=== PATIENT | male | born 1955 | race African-American/Black ===

== ENCOUNTER 2022-01-27 15:09 | Inpatient (IN) | payer MEDICARE, OTHER ==
[~2022-01-27] VITALS: Ht 175.3 cm; Wt 63.5 kg
[2022-01-27 16:08] LABS: HEMATOCRIT. 27.9 % (42.0-52.0); HEMOGLOBIN. 8.9 g/dL (14.0-18.0); MEAN CORPUSCULAR HEMOGLOBIN 24.1 pg (28.0-32.0); MEAN CORPUSCULAR VOLUME 76.1 fL (80.0-94.0); MEAN PLATELET VOLUME 6.8 fl (7.4-10.4); PLATELET 171 x1000/uL (130-400); RED BLOOD CELL COUNT 3.67 mill/uL (4.7-6.1); RED CELL DISTRIBUTION WIDTH 22.5 % (11.6-14.6)
[2022-01-27 16:12] LABS: CHLORIDE 106 mEq/L (98-107)
[2022-01-27] MEDS ORDERED: SODIUM CHLORIDE 0.9% 1,000 ML IV ONE (16:45)
[2022-01-27] MEDS ORDERED: ACETAMINOPHEN 325MG TABLET PO ONE (18:00)
[2022-01-27 18:33] LABS: PLATELET ESTIMATE NORMAL
[2022-01-27] MEDS ORDERED: IPRATROPIUM/ALBUTEROL 0.5-3(2.5)MG/3ML NEB HHN PRN (18:45)
[2022-01-27] MEDS ORDERED: DIPHENHYDRAMINE 50MG/ML VIAL IV PRN (18:45)
[2022-01-27] MEDS ORDERED: CLONIDINE 0.1MG TABLET PO PRN (18:45)
[2022-01-27] MEDS ORDERED: ONDANSETRON HCL 4MG/2ML INJ IV PRN (18:45)
[2022-01-27] MEDS ORDERED: ACETAMINOPHEN 325MG TABLET PO PRN (18:45)
[2022-01-27 21:15] VITALS: BP 103/66
[2022-01-27] MEDS: SODIUM CHLORIDE 0.9% 1,000 ML IV SCH (21:15)
[2022-01-28 07:05] LABS: HEMATOCRIT. 25.7 % (42.0-52.0); HEMOGLOBIN. 8.7 g/dL (14.0-18.0); LYMPHOCYTES % 7.3 % (20.0-50.0); MEAN CORPUSCULAR HEMOGLOBIN 25.3 pg (28.0-32.0); MEAN CORPUSCULAR VOLUME 74.9 fL (80.0-94.0); MEAN PLATELET VOLUME 7.1 fl (7.4-10.4); MONOCYTES % 7.5 % (2.0-8.0); NEUTROPHILS % 85.2 % (40.0-76.0); PLATELET 172 x1000/uL (130-400); RED BLOOD CELL COUNT 3.44 mill/uL (4.7-6.1); RED CELL DISTRIBUTION WIDTH 22.5 % (11.6-14.6)
[2022-01-28 07:20] LABS: CHLORIDE 107 mEq/L (98-107)
[2022-01-28 08:00] VITALS: BP 106/69
[2022-01-28] MEDS: SODIUM CHLORIDE 0.9% 1,000 ML IV SCH (11:25)
[2022-01-28 12:00] VITALS: BP 104/71
[2022-01-28] MEDS ORDERED: INFLUENZA VACCINE 05/PF 0.5 ML SYRINGE IM ONE (12:00)
[2022-01-28 12:26] LABS: PLATELET ESTIMATE NORMAL
[2022-01-28] MEDS ORDERED: MORPHINE SULFATE 2 MG/ML CPJ (NOT FOR IM USE) IV PRN (14:45)
[2022-01-28] MEDS ORDERED: NALOXONE HCL 0.4MG/ML VIAL IV PRN (15:00)
[2022-01-28 16:00] VITALS: BP 106/72
[2022-01-28 19:33] LABS: CLARITY URINE CLEAR (CLEAR); COLOR URINE YELLOW (YELLOW); KETONES URINE NEGATIVE (NEGATIVE); LEUKOCYTE ESTERASE URINE NEGATIVE (NEGATIVE); NITRITE URINE NEGATIVE (NEGATIVE); OCCULT BLOOD URINE NEGATIVE (NEGATIVE); PROTEIN URINE NEGATIVE (NEGATIVE); SPECIFIC GRAVITY URINE 1.015 (1.005-1.030); UROBILINOGEN URINE 0.2 E.U./dL (0.2-1.0)
[2022-01-28 20:00] VITALS: BP 107/59
[2022-01-28 20:06] LABS: *AMPHETAMINES SCREEN URINE NEGATIVE (NEGATIVE); *BARBITURATES SCREEN URINE NEGATIVE (NEGATIVE); *BENZODIAZEPINES SCREEN URINE NEGATIVE (NEGATIVE); *COCAINE SCREEN URINE NEGATIVE (NEGATIVE); CANNABINOID URINE SCREEN NEGATIVE (NEGATIVE); METHADONE URINE SCREEN NEGATIVE (NEGATIVE); OPIATES URINE SCREEN NEGATIVE (NEGATIVE); PHENCYCLIDINE URINE SCREEN NEGATIVE (NEGATIVE)
[2022-01-29] VITALS: BP 131/74
[2022-01-29 04:00] VITALS: BP 101/55
[2022-01-29] MEDS: SODIUM CHLORIDE 0.9% 1,000 ML IV SCH ×2 (04:05→21:10)
[2022-01-29 08:00] VITALS: BP 97/56
[2022-01-29 12:00] VITALS: BP 104/63
[2022-01-29 16:00] VITALS: BP 128/85
[2022-01-29 20:00] VITALS: BP 97/63
[2022-01-30] VITALS: BP 97/59
[2022-01-30 04:00] VITALS: BP 96/61
[2022-01-30 08:00] VITALS: BP 98/63
[2022-01-30 12:00] VITALS: BP 123/81
[2022-01-30] MEDS: DEXT 5%/0.45% NACL 1000ML 1,000 ML IV SCH (13:04)
[2022-01-30] MEDS ORDERED: DEXTROSE 50% WATER 50ML SYRINGE IV NR (13:15)
[2022-01-30] MEDS: MEGESTROL ACETATE 400 MG/10 ML UDC PO SCH (14:15)
[2022-01-30] MEDS: SODIUM CHLORIDE 0.45% 1,000 ML IV SCH (14:15)
[2022-01-30] MEDS: PANTOPRAZOLE SODIUM 40 MG/VIAL IV SCH (18:19)
[2022-01-30 19:37] LABS: CREATINE KINASE 95 IU/L (39-308)
[2022-01-30 19:55] LABS: TOTAL IRON BINDING CAPACITY 169 ug/dL (250-450)
[2022-01-30 20:00] VITALS: BP 124/75
[2022-01-30 20:17] LABS: FERRITIN 945 ng/mL (22-322)
[2022-01-30 20:31] LABS: VITAMIN B12 SERUM > 2000.0 pg/mL (211-911)
[2022-01-31] VITALS: BP 130/73
[2022-01-31 04:00] VITALS: BP 116/77
[2022-01-31] MEDS: PANTOPRAZOLE SODIUM 40 MG/VIAL IV SCH ×3 (08:31→08:42)
[2022-01-31] MEDS: MEGESTROL ACETATE 400 MG/10 ML UDC PO SCH (08:31)
[2022-01-31] MEDS: DEXT 5%/0.45% NACL 1000ML 1,000 ML IV SCH ×4 (08:31→18:18)
[2022-01-31] MEDS: SODIUM CHLORIDE 0.45% 1,000 ML IV SCH ×2 (10:15→20:00)
[2022-01-31] MEDS: PANTOPRAZOLE 40MG DR TABLET PO SCH (11:45)
[2022-01-31] MEDS ORDERED: LIDOCAINE HCL 1% 10 MG/ML 10ML VIAL ONE (12:39)
[2022-01-31 15:44] LABS: BASOPHILS % 0.1 % (0.0-2.0); HEMATOCRIT. 30.3 % (42.0-52.0); HEMOGLOBIN. 9.7 g/dL (14.0-18.0); LYMPHOCYTES % 7.7 % (20.0-50.0); MEAN CORPUSCULAR VOLUME 74.6 fL (80.0-94.0); MEAN PLATELET VOLUME 7.5 fl (7.4-10.4); MONOCYTES % 8.7 % (2.0-8.0); NEUTROPHILS % 83.5 % (40.0-76.0); PLATELET 119 x1000/uL (130-400); RED BLOOD CELL COUNT 4.05 mill/uL (4.7-6.1); RED CELL DISTRIBUTION WIDTH 23.2 % (11.6-14.6)
[2022-01-31] MEDS ORDERED: LOSARTAN 100 MG (19:00)
[2022-01-31] MEDS ORDERED: XARELTO (19:00)
[2022-01-31] MEDS ORDERED: ATORVASTATIN (19:01)
[2022-01-31] MEDS ORDERED: ASPIRIN 81MG (19:04)
[2022-01-31] MEDS ORDERED: DORZOLAMIDE TIMOLOL (19:04)
[2022-01-31] MEDS ORDERED: LEVOTHYROXINE (19:04)
[2022-01-31] MEDS ORDERED: PANT40TA51 MT (19:04)
[2022-01-31] MEDS ORDERED: D3 (19:04)
[2022-01-31] MEDS ORDERED: LATA5DRO EACHEYE (19:05)
[2022-01-31 20:00] VITALS: BP 106/62
[2022-02-01] VITALS: BP 106/63
[2022-02-01 04:00] VITALS: BP 115/65
[2022-02-01 08:00] VITALS: BP 128/68
[2022-02-01] MEDS ORDERED: FOLIC ACID 1MG TABLET PO SCH (09:00)
[2022-02-01] MEDS: PANTOPRAZOLE 40MG DR TABLET PO SCH (09:00)
[2022-02-01 10:27] LABS: HEMATOCRIT. 28.2 % (42.0-52.0); HEMOGLOBIN. 9.1 g/dL (14.0-18.0); MEAN CORPUSCULAR HEMOGLOBIN 24.1 pg (28.0-32.0); MEAN CORPUSCULAR VOLUME 74.8 fL (80.0-94.0); MEAN PLATELET VOLUME 8.4 fl (7.4-10.4); PLATELET 107 x1000/uL (130-400); RED BLOOD CELL COUNT 3.77 mill/uL (4.7-6.1); RED CELL DISTRIBUTION WIDTH 23.1 % (11.6-14.6)
[2022-02-01 11:15] LABS: PLATELET ESTIMATE SLIGHTLY DECREASED
[2022-02-01 12:00] VITALS: BP 103/62
[2022-02-01] MEDS: SODIUM CHLORIDE 0.45% 1,000 ML IV SCH ×2 (15:21→15:41)
[2022-02-01] MEDS: DEXT 5%/0.45% NACL 1000ML 1,000 ML IV SCH (15:40)
[2022-02-01 16:00] VITALS: BP 125/65
[2022-02-01 20:00] VITALS: BP 109/77
[2022-02-02 04:34] VITALS: BP 107/61
[2022-02-02] MEDS ORDERED: DEXTROSE 50% WATER 50ML SYRINGE IV NR (07:30)
[2022-02-02] MEDS ORDERED: MAGNESIUM SULFATE 4G IN WATER 100ML PREMIX IV ONE (08:45)
[2022-02-02] MEDS ORDERED: AMIODARONE HCL 50MG/ML 3ML VIAL IV ONE (08:45)
[2022-02-02] MEDS ORDERED: CALCIUM CHLORIDE 1GM/10ML SYR IV ONE (08:45)
[2022-02-02] MEDS ORDERED: SODIUM BICARBONATE 8.4% 1 MEQ/ML 50ML SYR IV ONE (08:45)
[2022-02-02] MEDS ORDERED: EPINEPHRINE 0.1MG/ML (1:10,000) 10ML SYR ONE (08:45)
[2022-02-02] MEDS ORDERED: DEXTROSE 50% WATER 50ML SYRINGE IV ONE (08:45)
[2022-02-03 09:10] LABS: ANTI-NUCLEAR ANTIBODIES DIRECT Negative (Negative)
== END 2022-02-02 07:24 | DRG 110 ==
LOC: ER 15:09 → EDBEDREQTM 18:01 → EDBEDREQ 18:01 → EDBEDREQSVC 18:01 → ENRESERV 19:19 → 6EST 21:15
PROVIDERS: ADMIT Internal Medicine; ATTEND Internal Medicine
PROC: 02HV33Z Insertion of Infusion Device into Superior Vena Cava, Percutaneous Approach (ICD-10-PCS; 2022-01-31)
PROC: B5181ZA Fluoroscopy of Superior Vena Cava using Low Osmolar Contrast, Guidance (ICD-10-PCS; 2022-01-31)
PROC: B548ZZA Ultrasonography of Superior Vena Cava, Guidance (ICD-10-PCS; 2022-01-31)
PROC: 5A12012 Performance of Cardiac Output, Single, Manual (ICD-10-PCS; principal; 2022-02-02)
PROC: 0BH17EZ Insertion of Endotracheal Airway into Trachea, Via Natural or Artificial Opening (ICD-10-PCS; 2022-02-02)
PROC: 5A2204Z Restoration of Cardiac Rhythm, Single (ICD-10-PCS; 2022-02-02)
DX: C76.0 Malignant neoplasm of head, face and neck (principal); E43 Unspecified severe protein-calorie malnutrition; E87.0 Hyperosmolality and hypernatremia; R64 Cachexia; N17.9 Acute kidney failure, unspecified; C14.0 Malignant neoplasm of pharynx, unspecified; K92.2 Gastrointestinal hemorrhage, unspecified; E83.51 Hypocalcemia; E86.0 Dehydration; E88.09 Other disorders of plasma-protein metabolism, not elsewhere classified; I46.9 Cardiac arrest, cause unspecified; S11.90XA Unspecified open wound of unspecified part of neck, initial encounter; N18.9 Chronic kidney disease, unspecified; I12.9 Hypertensive chronic kidney disease with stage 1 through stage 4 chronic kidney disease, or unspecified chronic kidney disease; E86.9 Volume depletion, unspecified; E16.2 Hypoglycemia, unspecified; D72.825 Bandemia; D50.9 Iron deficiency anemia, unspecified; R13.10 Dysphagia, unspecified; Z68.20 Body mass index [BMI] 20.0-20.9, adult; R62.7 Adult failure to thrive; Z85.819 Personal history of malignant neoplasm of unspecified site of lip, oral cavity, and pharynx; Z85.89 Personal history of malignant neoplasm of other organs and systems; Z86.73 Personal history of transient ischemic attack (TIA), and cerebral infarction without residual deficits; Z92.21 Personal history of antineoplastic chemotherapy; Y84.2 Radiological procedure and radiotherapy as the cause of abnormal reaction of the patient, or of later complication, without mention of misadventure at the time of the procedure; Y92.89 Other specified places as the place of occurrence of the external cause; R52 Pain, unspecified
CPT/HCPCS: 36415; 36573; 70490; 74176; 76700; 76770; 80048; 80053; 80305; 81003; 82040; 82550; 82607; 82728; 82746; 82962; 83540; 83550; 84134; 84484; 85025; 85044; 86038; 86160; 92610; 93005; 93970; 99285; C1725; C9113; J0282; J3475; J3490; J7030